=== PATIENT | male | born 1945 | race Caucasian/White ===

== ENCOUNTER 2016-09-24 15:04 | Inpatient (IN) ==
[2016-09-24] MEDS ORDERED: Ondansetron 4 MG/2 ML VIAL IVP ONE (15:31)
[2016-09-24] MEDS ORDERED: *HR* Morphine 2 MG/ML SYRINGE IVP ONE (15:31)
--- NOTE | 2016-09-24 15:36 | Emergency Department Note ---
Disposition Clinical Impression: Pancreatitis Qualifiers: Chronicity: acute Pancreatitis type: unspecified pancreatitis type Acute pancreatitis complication: unspecified Qualified Code(s): K85.90 - Acute pancreatitis without necrosis or infection, unspecified Cholelithiasis Qualifiers: Cholelithiasis location: gallbladder Cholecystitis presence: without cholecystitis Biliary obstruction: without biliary obstruction Qualified Code(s) : K80.20 - Calculus of gallbladder without cholecystitis without obstruction Abdominal pain Qualifiers: Abdominal location: right upper quadrant Qualified Code(s): R10.11 - Right upper quadrant pain Disposition: Admitted As Inpatient Condition: Good Time of Disposition: 15:42 Abdominal Pain HPI - General Chief Complaint: ED Abdominal Pain Stated Complaint: Rt Side abd pain Time Seen by Provider: 09/24/16 15:17 Source: patient, family (), EMS Mode of arrival: EMS Limitations: no limitations Nursing Notes Reviewed: Yes Vital Signs Reviewed: Yes - History of Present Illness HPI Narrative: 71-year-old male history of hypertension, CAD s/p CABG, hyperlipidemia and non- insulin-dependent diabetes mellitus presents to the ED via EMS from the CT for abdominal pain. Patient has been experiencing all constant abdominal pain mostly in the epigastric and right upper quadrant. Ongoing for past 2 days. Denies any nausea vomiting or diarrhea. Denies any bloody stool black tarry stool. Denies any fever, cough, chest pain or shortness of breath. Denies any association with foods. Today he went to the CT urgent care and was evaluated. Review of his medical records from the CT. Labs and images performed. This lipase was greater than 3000. Bilirubin 1.1. Mild elevation of his liver function tests. CT of the abdomen and pelvis show Gabrielle with Nia and stranding around the pancreas suggestive of pancreatitis. He has not eaten anything since 8 AM this morning. Patient presents afebrile with stable vital signs. A copy of the CT was attached and sent down to radiology for upload. Patient will be admitted for pancreatitis. Zofran and morphine for symptoms at this time. Patient is in agreement with this plan. He denies any recent alcohol use. I suspect his pancreatitis is likely due to his gallstone. Pain Scale: 6 - Related Data Home Medications Medication Instructions Recorded Confirmed Gabapentin [Neurontin] 600 mg PO TID 02/11/15 09/24/16 Mv,Minerals/FA/Lycopene/Ginkgo 1 each PO DAILY 02/11/15 09/24/16 [One Daily For Men 50+ Adv Tab] glyBURIDE [GlyBURIDE] 7.5 mg PO BID 02/11/15 09/24/16 metFORMIN [Glucophage] 1,000 mg PO BID 02/11/15 09/24/16 traMADol [Ultram] 100 mg PO QID 02/11/15 09/24/16 Acetaminophen [Tylenol] 500 mg PO Q6HR PRN 09/24/16 09/24/16 Atorvastatin Calcium [Lipitor] 80 mg PO HS 09/24/16 09/24/16 DiphenhydraMINE [Benadryl] 25 mg PO HS 09/24/16 09/24/16 Ketotifen Fumarate [Zaditor] 1 drop BOTH EYES BID 09/24/16 09/24/16 Lisinopril [Zestril] 5 mg PO DAILY 09/24/16 09/24/16 Metoprolol Succinate 25 mg PO DAILY 09/24/16 09/24/16 [place]-3 Fatty Acids [Fish Oil 1,000 mg PO DAILY 09/24/16 09/24/16 Concentrate] Sennosides/Docusate Sodium [Senna 2 each PO BID PRN 09/24/16 09/24/16 Plus] hydroCHLOROthiazide 25 mg PO DAILY 09/24/16 09/24/16 [Hydrochlorothiazide] Previous Rx's Medication Instructions Recorded Aspirin Enteric Coated [Aspirin EC] 81 mg PO DAILY #30 tablet. 02/25/15 Clopidogrel Bisulfate [Plavix] 75 mg PO DAILY #30 tablet 02/25/15 Allergies Allergy/AdvReac Type Severity Reaction Status Date / Time No Known Allergies Allergy Verified 09/24/16 16:22 All systems ED: reviewed and negative except as stated. Review of Systems: As Per HPI Constitutional: Denies: fever, chills Cardiovascular: Denies: chest pain, dyspnea on exertion Respiratory: Denies: cough, dyspnea Gastrointestinal: Reports: abdominal pain. Denies: nausea, vomiting, diarrhea Genitourinary: Denies: urgency, dysuria Musculoskeletal: Denies: back pain, neck pain Integumentary: Denies: rash, abrasion, lesions Neurological: Denies: headache Abdominal Pain PMH - Past Medical History Medical history: Reports: diabetes, hyperlipidemia, hypertension Male Surgical History: Reports: orthopedic, other Psychiatric history: Reports: PTSD - Social History Smoking status: Former smoker Alcohol use: Reports: none Drug use: Reports: none Physical Exam - General Limitations: no limitations General appearance: alert, in no apparent distress - Head Head exam: atraumatic, normocephalic, normal inspection - Eye Eye exam: Present: normal appearance, PERRL, EOMI. Absent: scleral icterus - ENT ENT exam: normal exam, normal oropharynx, mucous membranes moist - Neck Neck exam: Present: normal inspection, full ROM - Chest Chest inspection: Present: normal inspection, symmetric chest wall rise, other ( Midline scar consistent with CABG) - Respiratory Respiratory exam: Present: normal lung sounds bilaterally. Absent: respiratory distress, wheezes - Cardiovascular Cardiovascular exam: Present: regular rate, normal rhythm, normal heart sounds - Abdominal Exam Abdominal exam: Present: soft, tenderness, normal bowel sounds, Sim's sign, scar (epigastric from CABG). Absent: Non-Tender, distention, guarding, rebound , rigidity, Rovsing's sign, tenderness at McBurney's Point Abdominal tenderness: Present: RUQ, epigastrium, diffuse, mild - Extremities Exam Extremities exam: Present: normal inspection, full ROM, normal capillary refill. Absent: tenderness, pedal edema, calf tenderness - Neurological Exam Neurological exam: Present: alert, oriented X3 - Skin Skin exam: Present: warm, dry, intact, normal color Course - Reevaluation(s) Reevaluation #1: Review of his the CT medical records. Shows lab findings consistent with pancreatitis. Patient will be started on IV fluids and medications to control symptoms. He will be admitted for pancreatitis as well as gallstones. Patient is in agreement with this plan. A copy of the CT has been uploaded by the radiology department. - Consultations Consultation #1: Spoke with on-call hospitalist gemma Oliver to admit for abdominal pain, pancreatitis, cholelithiasis. No further orders at this time Time: 15:35 Vital Signs Temperature 98.6 F 09/24/16 15:09 Pulse Rate 70 09/24/16 15:09 Respiratory Rate 18 09/24/16 15:09 Blood Pressure 138/76 09/24/16 15:09 O2 Sat by Pulse Oximetry 99 09/24/16 15:09 Temperature 98.5 F 09/24/16 20:01 Pulse Rate 62 09/24/16 20:01 Respiratory Rate 14 09/24/16 20:01 Blood Pressure 133/69 09/24/16 20:01 O2 Sat by Pulse Oximetry 98 09/24/16 20:01 Oxygen Delivery Oxygen Delivery Room Air Abdominal Pain - Medical Records Medical records reviewed: Yes I reviewed the patient's medical records. - Lab Data Lab results reviewed: Yes I reviewed the patient's lab results. Lab Results 09/24/16 Range/Units 16:37 POC Glucose 87 (58-89) - Radiology Data Radiology results reviewed: Yes I reviewed the patient's radiology results. Attestation Statement - Attestation Attestation: I, Ziyad Wright, examined this patient and my medical decision-making was reviewed with the LIGHTER/PA/Advanced Practice Nurse/Resident Physician. I agree with the documented findings, disposition and treatment plan as described except to the extent set forth below. 71-year-old male presents with concerns of right sided and epigastric abdominal pain. Abdominal pain has been present for the past 2 days. + Nausea without vomiting. Denies chest pain, shortness of breath, palpitations. Laboratory evaluation and CT of the abdomen show likely pancreatitis. Patient will be admitted to the hospital for further care and evaluation of pancreatitis, with treatment with IV fluids.
[2016-09-24] MEDS ORDERED: Ondansetron 4 MG/2 ML VIAL IVP PRN (17:34)
[2016-09-24] MEDS ORDERED: Naloxone 0.4 MG/ML INJ IVP PRN (17:37)
[2016-09-24] MEDS ORDERED: Dextrose Gel 15 GM PO PRN ×2 (17:44)
[2016-09-24] MEDS ORDERED: *HR* Dextrose 50 % in Water (Syg) 50 ML SYRINGE IVP PRN (17:44)
[2016-09-24] MEDS ORDERED: D5% in Water 1,000 ML IVC PRN (17:44)
[2016-09-24] MEDS ORDERED: 0.9 % Sodium Chloride 1,000 ML IVC SCH (17:45)
--- NOTE | 2016-09-24 17:51 | Internal Med History&Physical ---
Date of Encounter: 09/24/16 Time of Encounter: 17:00 Assessment and Plan (1) Acute gallstone pancreatitis Current visit: Yes Status: Acute Will start Zosyn, IVF, Zofran PRN, Morphine PRN. Clear liquid diet. Will obtain gallbladder ultrasound in the a.m. Consult Surgery for possible future cholecystectomy. Consult to Dr. Cohn ordered. Given EF of only 40-45%, will need to discontinue IVF in the a.m. to avoid risk of acute CHF. (2) Ischemic cardiomyopathy Current visit: No Status: Acute Continue Aspirin, Plavix, BB per home dose (3) DM (diabetes mellitus), type 2 Current visit: No Status: Chronic holding PO agents. SSI coverage q6 hours for now while on clear liquid diet. Qualifiers: Diabetes mellitus complication status: with unspecified complications Diabetes mellitus equipment operator intermodal yard insulin use: without equipment operator intermodal yard use Qualified Code( s): E11.8 - Type 2 diabetes mellitus with unspecified complications Internal Medicine - H&P: HPI Chief complaint: abdominal pain Admitted From: Home Plans for Post Hospital Care: Home History of present illness: Mr. Ko is a 71 year old male with past medical history CAD status post three-vessel CABG, hypertension, diabetes type 2, hyperlipidemia who presents to [facility] with abdominal pain. Pain started 2 days ago and is diffuse. Was not accompanied accompanied by vomiting or nausea. Patient denies any diarrhea and has been having normal bowel movements. Patient went to the [facility], and was found to have hyperlipidemia with a lipase level greater than 3000, amylase level 980. Total bilirubin level I.1. CT abdomen and pelvis without IV contrast reveals cholelithiasis with questionable stranding surrounding the pancreatic head suggestive of mild pancreatitis. Urinalysis was unremarkable. Patient denies any history of EtOH use or abuse, and denies history of prior pancreatitis. Patient's abdominal pain is improving with pain control. Past Med Surg Social Fam HX - Past Medical History Medical history: diabetes, hyperlipidemia, hypertension Psychiatric history: PTSD - Past Surgical History Surgical History: coronary bypass (CABG) - Social History Smoking Status: Former smoker Smokeless Tobacco Status: No Alcohol use: none Drug use: none - Family History Father Living Status: Hx Family Cardiac Disorders: Yes Hx Family Cancer: Yes Mother Living Status: Hx Family Cardiac Disorders: Yes (Hypertension) Hx Family Endocrine Disorder: Yes (Diabetes) Internal Medicine - H&P: Meds Gabapentin [Neurontin] 600 mg PO TID 02/11/15 [History] Mv,Minerals/FA/Lycopene/Ginkgo [One Daily For Men 50+ Adv Tab] 1 each PO DAILY 02/11/15 [History] glyBURIDE [GlyBURIDE] 7.5 mg PO BID 02/11/15 [History] metFORMIN [Glucophage] 1,000 mg PO BID 02/11/15 [History] traMADol [Ultram] 100 mg PO QID 02/11/15 [History] Aspirin Enteric Coated [Aspirin EC] 81 mg PO DAILY #30 tablet. 02/25/15 [Rx] Clopidogrel Bisulfate [Plavix] 75 mg PO DAILY #30 tablet 02/25/15 [Rx] Acetaminophen [Tylenol] 500 mg PO Q6HR PRN 09/24/16 [History] Atorvastatin Calcium [Lipitor] 80 mg PO HS 09/24/16 [History] DiphenhydraMINE [Benadryl] 25 mg PO HS 09/24/16 [History] Ketotifen Fumarate [Zaditor] 1 drop BOTH EYES BID 09/24/16 [History] Lisinopril [Zestril] 5 mg PO DAILY 09/24/16 [History] Metoprolol Succinate 25 mg PO DAILY 09/24/16 [History] [place]-3 Fatty Acids [Fish Oil Concentrate] 1,000 mg PO DAILY 09/24/16 [History] Sennosides/Docusate Sodium [Senna Plus] 2 each PO BID PRN 09/24/16 [History] hydroCHLOROthiazide [Hydrochlorothiazide] 25 mg PO DAILY 09/24/16 [History] 3 Allergy/AdvReac Type Severity Reaction Status Date / Time No Known Allergies Allergy Verified 09/24/16 16:22 All Systems PM: A 10-system review of systems was performed and is negative for pertinent findings except as documented above in the HPI. - Constitutional Constitutional: no excessive sweating, no fever(s) - Cardiovascular Cardiovascular ROS IM: no chest pain - Respiratory Respiratory: no dyspnea - Gastrointestinal Gastrointestinal: as per HPI, no diarrhea, no hematochezia, no melena, no nausea - Genitourinary Genitourinary ROS male: no dysuria - Constitutional Vitals: Temp Pulse Resp BP Pulse Ox 97.8 F 63 12 129/77 98 08/17/17 16:19 09/24/16 16:19 09/24/16 16:19 09/24/16 16:19 09/24/16 16:19 General appearance: Present: A&O X 3, pleasant, no acute distress, answers questions appropriately - Respiratory Respiratory exam: Present: CTAB - Cardiovascular Cardiovascular exam: Present: RRR, +S1, +S2 - GI/Abdominal GI/Abdominal exam: Present: normal bowel sounds, soft, no peritoneal signs. Absent: distended, firm, guarding, hepatomegaly, rebound, splenomegaly Additional comments: mild diffuse tenderness noted - Extremities Exam Extremities exam: Absent: pedal edema, tenderness - Psychiatric Psychiatric exam: Present: flat affect
[2016-09-24] MEDS: Insulin LISPRO 300 UNITS/3 ML VIAL SQ SCH (18:05)
[2016-09-24] MEDS: Famotidine 20 MG/2 ML VIAL IVP SCH (18:39)
[2016-09-24] MEDS: *HR* Morphine 2 MG/ML SYRINGE IVP PRN (18:40)
[2016-09-24] MEDS: 0.9 % Sodium Chloride 1,000 ML IVC SCH (18:40)
[2016-09-24] MEDS: Gabapentin 300 MG CAPSULE PO SCH (21:14)
[2016-09-24] MEDS: ZADITOR OP SCH (21:17)
[2016-09-25] MEDS: Insulin LISPRO 300 UNITS/3 ML VIAL SQ SCH ×5 (00:24→23:47)
[2016-09-25] MEDS: Piperacillin/Tazobactam 3.375 GM in D5% in Water (Mini-Bag+) 100 ML IVPB SCH ×2 (00:35→07:40)
[2016-09-25] MEDS: 0.9 % Sodium Chloride 1,000 ML IVC SCH (04:23)
[2016-09-25] MEDS: Famotidine 20 MG/2 ML VIAL IVP SCH ×2 (06:13→18:45)
[2016-09-25] MEDS ORDERED: *HR* Enoxaparin 40 MG/0.4 ML SYRINGE SQ SCH (07:00)
[2016-09-25 07:04] LABS: Alanine Aminotransferase 39 Units/L (0-55); Albumin 3.3 g/dL (3.5-5.0); Albumin/Globulin Ratio 1.2 (1.1-2.2); Alkaline Phosphatase 73 Units/L (38-126); Aspartate Amino Transferase 33 Units/L (5-34); BUN/Creatinine Ratio 15 (6-26); Bilirubin,Total 1.6 mg/dL (0.2-1.2); Blood Urea Nitrogen 12 mg/dL (8-26); Carbon Dioxide 27 mEq/L (19-29); Chloride 107 mEq/L (98-109); Chol/HDL Ratio 3.9 (0-4.9); Cholesterol 108 mg/dL (< 200); Globulin 2.7 g/dL (2.4-3.5); Glucose 93 mg/dL (70-99); HDL Cholesterol 28 mg/dL (40-59); LDL Cholesterol,Calculated 56 mg/dL (0-99); Osmolality,Calculated 289 (280-300); Potassium 3.9 mEq/L (3.5-4.5); Sodium 140 mEq/L (136-145); Triglycerides 122 mg/dL (< 150); eGFR For African Americans > 60 (> 60); eGFR For Non-African Americans > 60 (> 60)
[2016-09-25 07:05] LABS: Basophils % 0.5 %; Eosinophils # 0.2 K/mcL (0.0-0.6); Hemoglobin 12.2 g/dL (12.9-16.9); Immature Granulocytes % 0.5 % (0-4); Lymphocytes % 25.2 %; Mean Corpuscular HGB Conc 33.9 g/dL (31.6-35.5); Mean Corpuscular Hemoglobin 31.6 pg (28.0-33.3); Mean Corpuscular Volume 93.3 fL (83.0-100.0); Mean Platelet Volume 11.7 fL (9.4-12.4); Monocytes # 0.9 K/mcL (0.0-1.3); Monocytes % 10.8 %; Neutrophils # 4.9 K/mcL (1.6-8.9); Platelet Count 130 K/mcL (140-400); Red Blood Count 3.86 M/mcL (4.19-5.50)
[2016-09-25] MEDS: Gabapentin 300 MG CAPSULE PO SCH ×3 (07:37→20:10)
[2016-09-25] MEDS: Metoprolol XL (24 HR) Succ 25 MG TAB.ER.24H PO SCH (07:38)
[2016-09-25] MEDS: ZADITOR OP SCH ×2 (07:41→20:19)
[2016-09-25] MEDS ORDERED: Aspirin Enteric Coated 81 MG Tablet PO SCH (09:00)
--- NOTE | 2016-09-25 09:04 | General Surgery Consult Note ---
<AnaYaya - Last Filed: 09/25/16 14:52> Date of Encounter: 09/25/16 Time of Encounter: 06:45 Assessment and Plan (1) Acute gallstone pancreatitis Current Visit: Yes Status: Acute 71 yo male with PMH of CAD status post three-vessel CABG (02/19/15), hypertension, DM type 2, hyperlipidemia presented to [facility] with 2 days of diffuse abdominal pain without accompanying nausea, vomiting, diarrhea, or constipation on 09/24/16 with elevated lipase >[address] shows mild pancreatitis, gallbladder ultrasound confirms cholelithiasis. -Discontinue aspirin, plavix, lovenox. -Currently working on scheduling cholecystectomy in the next 48 hours. Patient can continue NPO tonight. -Continue Flagyl, Ceftriaxone. -Continue supportive and pain care. -Monitor with a.m. labs -Continue PPI for n/v prophylaxis -Ambulate as tolerated. (2) Chronic anticoagulation Current Visit: No Status: Acute History of 3 vessel CAGB in February,. On chronic plavix and aspirin. Hold anticoagulantion for surgery. (3) DM (diabetes mellitus), type 2 Current Visit: No Hold home medication for now. Qualifiers: Diabetes mellitus complication status: with unspecified complications Diabetes mellitus shelter insulin use: without shelter use Qualified Code( s): E11.8 - Type 2 diabetes mellitus with unspecified complications (4) DVT prophylaxis Current Visit: Yes Status: Acute Ambulate as tolerated. SCDs for DVT prophylaxis if needed. (5) Hypercholesteremia Current Visit: No Status: Chronic Continue atorvastatin, home meds. History of Present Illness Reason for consult: other (Acute gallstone pancreatitis, possible cholecystectomy) Requesting physician: Jimmie Lei History of present illness: 71 yo male with PMH of CAD status post three-vessel CABG (02/19/15), hypertension, DM type 2, hyperlipidemia presented to [facility] with 2 days of diffuse abdominal pain without accompanying nausea, vomiting, diarrhea, or constipation on 09/24/16. Patient went to [facility], where his lipase was greater than 3000, amylase 980, total bilirubin 1.1. CT of the abdomen and pelvis without IV contrast reveals cholelithiasis with questionable stranding surrounding the pancreatic head suggestive of mild pancreatitis. UA was unremarkable. Gallbladder ultrasound demonstrates cholelithiasis with mild gallbladder wall thickening without cholecystitis, diffuse hepatic steatosis, pancreas was obscured by overlying bowel gas. Zofran and morphine were administered at ED with symptomatic relief. Physical exam was within normal limits without abnormalities. Surgery is consulted for possible cholecystectomy. Patient's last bowel movement was yesterday morning. Past Med Surg Social Fam HX - Past Medical History Medical history: diabetes, hyperlipidemia, hypertension Psychiatric history: PTSD - Past Surgical History Surgical History: coronary bypass (CABG) - Social History Smoking Status: Former smoker Smokeless Tobacco Status: No Alcohol use: none Drug use: none - Family History Father Living Status: Hx Family Cardiac Disorders: Yes Hx Family Cancer: Yes Mother Living Status: Hx Family Cardiac Disorders: Yes (Hypertension) Hx Family Endocrine Disorder: Yes (Diabetes) Medications and Allergies Gabapentin [Neurontin] 600 mg PO TID 02/11/15 [History] Mv,Minerals/FA/Lycopene/Ginkgo [One Daily For Men 50+ Adv Tab] 1 each PO DAILY 02/11/15 [History] glyBURIDE [GlyBURIDE] 7.5 mg PO BID 02/11/15 [History] metFORMIN [Glucophage] 1,000 mg PO BID 02/11/15 [History] traMADol [Ultram] 100 mg PO QID 02/11/15 [History] Aspirin Enteric Coated [Aspirin EC] 81 mg PO DAILY #30 tablet. 02/25/15 [Rx] Clopidogrel Bisulfate [Plavix] 75 mg PO DAILY #30 tablet 02/25/15 [Rx] Acetaminophen [Tylenol] 500 mg PO Q6HR PRN 09/24/16 [History] Atorvastatin Calcium [Lipitor] 80 mg PO HS 09/24/16 [History] DiphenhydraMINE [Benadryl] 25 mg PO HS 09/24/16 [History] Ketotifen Fumarate [Zaditor] 1 drop BOTH EYES BID 09/24/16 [History] Lisinopril [Zestril] 5 mg PO DAILY 09/24/16 [History] Metoprolol Succinate 25 mg PO DAILY 09/24/16 [History] [place]-3 Fatty Acids [Fish Oil Concentrate] 1,000 mg PO DAILY 09/24/16 [History] Sennosides/Docusate Sodium [Senna Plus] 2 each PO BID PRN 09/24/16 [History] hydroCHLOROthiazide [Hydrochlorothiazide] 25 mg PO DAILY 09/24/16 [History] 3 Allergy/AdvReac Type Severity Reaction Status Date / Time No Known Allergies Allergy Verified 09/24/16 16:22 Review of Systems All systems PM: A 10-system review of systems was performed and is negative for pertinent findings except as documented above in the HPI. - Constitutional no chills, no fever(s), no weakness - EENT Nose, mouth and throat: no hoarseness, no sore throat - Cardiovascular no chest pain, no diaphoresis, no dyspnea, no dyspnea on exertion, no irregular heart rhythm, no leg edema, no palpitations, no syncope - Respiratory no cough, no dyspnea, no hemoptysis - Gastrointestinal abdominal pain, no change in bowel habits, no change in stool character, no diarrhea, no excessive flatus, no nausea - Genitourinary no difficulty urinating - Musculoskeletal no numbness - Neurological no syncope, no tingling General Surgery Exam Initial Vital Signs Temp Pulse Resp BP Pulse Ox 98.6 F 70 18 138/76 99 09/24/16 15:09/24/16 15:09/24/16 15:09/24/16 15:09/24/16 15:09 - General physical appearance well developed, well nourished, no distress - Eyes normal ocular movement - ENT no hearing loss, atraumatic, normocephalic, CN 2-12 grossly intact - Neck no masses, no bruits, trachea midline, no lymphadectomy, no venous distension - Respiratory normal expansion, normal respiratory effort, clear to auscultation - Cardiovascular Cardiovascular exam: Present: RRR, no murmurs/rubs/gallops - Abdomen Abdomen general surgery: Present: bowel sounds present, soft, tender. Absent: guarding, rebound, surgical scars, wound Abdominal Tenderness: Present: RUQ Hernia: Present: none - Integumentary Integumentary general surgery: Present: warm and dry, no abnormal pigmentation - Neurologic Present: CN 2-12 grossly intact, normal coordination, normal sensation - Psychiatric Psychiatric general surgery: Present: A&Ox3, speech is normal, memory intact Exam Initial Vital Signs Temp Pulse Resp BP Pulse Ox 98.6 F 70 18 138/76 99 09/24/16 15:09/24/16 15:09/24/16 15:09/24/16 15:09 09/24/16 15:09 Results - Labs 09/25/16 06:18 09/25/16 06:18 Abnormal lab results RBC 3.86 M/mcL (4.19-5.50) L 09/25/16 06:18 Hgb 12.2 g/dL (12.9-16.9) L 09/25/16 06:18 Hct 36.0 % (37.5-50.1) L 09/25/16 06:18 Plt Count 130 K/mcL (140-400) L 09/25/16 06:18 Total Bilirubin 1.6 mg/dL (0.2-1.2) H 09/25/16 06:18 Albumin 3.3 g/dL (3.5-5.0) L 09/25/16 06:18 HDL Cholesterol 28 mg/dL (40-59) L 09/25/16 06:18 Diabetes panel 09/25/16 Range/Units 06:18 Sodium 140 (136-145) mEq/L Potassium 3.9 (3.5-4.5) mEq/L Chloride 107 (98-109) mEq/L Carbon Dioxide 27 (19-29) mEq/L BUN 12 (8-26) mg/dL Creatinine 0.80 (0.72-1.25) mg/dL Glucose 93 (70-99) mg/dL Calcium 9.0 (8.6-10.8) mg/dL AST 33 (5-34) Units/L ALT 39 (0-55) Units/L Alkaline Phosphatase 73 (38-126) Units/L Albumin 3.3 L (3.5-5.0) g/dL Triglycerides 122 (< 150) mg/dL HDL Cholesterol 28 L (40-59) mg/dL Calcium panel 09/25/16 Range/Units 06:18 Calcium 9.0 (8.6-10.8) mg/dL Albumin 3.3 L (3.5-5.0) g/dL Pituitary panel 09/25/16 Range/Units 06:18 Sodium 140 (136-145) mEq/L Potassium 3.9 (3.5-4.5) mEq/L Chloride 107 (98-109) mEq/L Carbon Dioxide 27 (19-29) mEq/L BUN 12 (8-26) mg/dL Creatinine 0.80 (0.72-1.25) mg/dL Glucose 93 (70-99) mg/dL Calcium 9.0 (8.6-10.8) mg/dL Adrenal panel 09/25/16 Range/Units 06:18 Sodium 140 (136-145) mEq/L Potassium 3.9 (3.5-4.5) mEq/L Chloride 107 (98-109) mEq/L Carbon Dioxide 27 (19-29) mEq/L BUN 12 (8-26) mg/dL Creatinine 0.80 (0.72-1.25) mg/dL Glucose 93 (70-99) mg/dL Calcium 9.0 (8.6-10.8) mg/dL Total Bilirubin 1.6 H (0.2-1.2) mg/dL AST 33 (5-34) Units/L ALT 39 (0-55) Units/L Alkaline Phosphatase 73 (38-126) Units/L Albumin 3.3 L (3.5-5.0) g/dL All other labs normal. Consult Discharge Plan - Plan [facility]errals: [facility]Primary Care Provider[facility] - <Yohana Garces - Last Filed: 09/26/16 15:18> Date of Encounter: 09/26/16 Time of Encounter: 10:00 Assessment and Plan (1) DVT prophylaxis Current Visit: Yes Status: Acute (2) Abdominal pain Current Visit: Yes Status: Acute prn pain control Qualifiers: Abdominal location: right upper quadrant Qualified Code(s): R10.11 - Right upper quadrant pain (3) Cholelithiasis Current Visit: Yes Status: Acute gallstones seen on CT scan Qualifiers: Cholelithiasis location: gallbladder Cholecystitis presence: without cholecystitis Biliary obstruction: without biliary obstruction Qualified Code(s): K80.20 - Calculus of gallbladder without cholecystitis without obstruction (4) Acute gallstone pancreatitis Current Visit: Yes Status: Acute (5) Gallstone pancreatitis Current Visit: Yes Status: Acute discussed with patient that his amylase and lipase have returned to normal he has been off his asa and plavix for 2 days now ok clears, npo midnight prn pain control plan OR tomorrow for laparoscopic cholecystectomy with cholangiograms, possible open, risks and benefits discussed and he wishes to proceed, will plan Wednesday am History of Present Illness Consult date: 09/25/16 History of present illness: Patient with midabdominal pain starting several days ago, nausea and emesis. Went to the [place], lipase 3000, amylase 980, gallbladder with stones on CT scan. Transferred to [place] and admitted with gallstone pancreatitis. No diarrhea. Nausea improved since admission, pain improved Past Med Surg Social Fam HX - Past Medical History Source: patient Medical history: coronary artery disease, diabetes, hyperlipidemia, hypertension - Past Surgical History Surgical History: coronary bypass (CABG) Review of Systems All systems PM: reviewed and no additional remarkable complaints except as stated All systems PM: A 10-system review of systems was performed and is negative for pertinent findings except as documented above in the HPI. General Surgery Exam Initial Vital Signs Temp Pulse Resp BP Pulse Ox 98.6 F 70 18 138/76 99 09/24/16 15:09 09/24/16 15:09 09/24/16 15:09/24/16 15:09/24/16 15:09 - General physical appearance well developed, well nourished, no distress, no pain - Eyes PERRL, normal ocular movement - ENT normal mucosa, normocephalic - Neck trachea midline - Respiratory normal expansion, clear to auscultation - Cardiovascular Cardiovascular exam: Present: RRR, no murmurs/rubs/gallops - Abdomen Abdomen general surgery: Present: bowel sounds present, soft, tender. Absent: guarding, rebound Abdominal Tenderness: Present: epigastic - Integumentary Integumentary general surgery: Present: warm and dry, no abnormal pigmentation - Neurologic Present: CN 2-12 grossly intact, normal coordination, normal sensation - Musculoskeletal Present: normal gait, normal posture - Psychiatric Psychiatric general surgery: Present: A&Ox3, speech is normal Exam Initial Vital Signs Temp Pulse Resp BP Pulse Ox 98.6 F 70 18 138/76 99 09/24/16 15:09 09/24/16 15:09 09/24/16 15:09/24/16 15:09/24/16 15:09 Results - Labs 09/26/16 01:10 09/26/16 01:10 Short CBC 09/26/16 Range/Units 01:10 WBC 6.3 (4.3-11.1) K/mcL Hgb 12.4 L (12.9-16.9) g/dL Hct 35.4 L (37.5-50.1) % Plt Count 120 L (140-400) K/mcL BMP 09/26/16 Range/Units 01:10 Sodium 139 (136-145) mEq/L Potassium 3.4 L (3.5-4.5) mEq/L Chloride 109 (98-109) mEq/L Carbon Dioxide 26 (19-29) mEq/L BUN 11 (8-26) mg/dL Creatinine 0.76 (0.72-1.25) mg/dL Glucose 192 H (70-99) mg/dL Calcium 8.7 (8.6-10.8) mg/dL Vital Signs Temp Pulse Resp BP Pulse Ox 09/26/16 15:09 98.3 F 76 18 147/73 98 09/26/16 10:04 98.1 F 73 16 143/68 99 09/26/16 10:00 97.8 F 58 18 141/76 97 09/26/16 06:34 98.3 F 72 16 146/73 99 09/26/16 00:05 98.0 F 62 16 148/74 98 09/25/16 19:50 98.0 F 69 16 137/69 98 Intake and Output 09/25/16 09/26/16 09/26/16 23:59 07:59 15:59 Intake Total 100 / 100 2100 / 2100 500 / 500 Output Total 500 / 500 600 / 600 Balance -400 / -400 1500 / 1500 500 / 500 Intake: IV Fluids 100 / 100 2100 / 2100 500 / 500 D5% And 0.45% Nacl 1000 2000 / 2000 500 / 500 Ml Bag 1,000 ML @ 175 mls /hr IVC .[id number] [facility] Rx#: [id number] Flagyl Premix 500 MG/100 100 / 100 100 / 100 ML 500 mg In 100 ml @ 100 mls/hr IVPB Q8HR [facility] Rx# :[id number] Oral 0 / 0 0 / 0 0 / 0 Output: Urine 500 / 500 600 / 600 Other: # Voids 4 Blood Glucose* 197 201 198
[2016-09-25] MEDS: MetroNIDAZOLE 500 MG/100 ML 500 MG/100 ML BAG IVPB SCH ×3 (09:51→23:46)
--- NOTE | 2016-09-25 10:20 | Internal Med Progress Note ---
Addendum entered and electronically signed by Addison River DO 09/25/16 13: 13: Spoke with GI. They are planning surgery in two days and want anticoagulation held for two days. Will hold ASA, Plavix, and Lovenox. SCDs for DVT prophylaxis. Original Note: <Addison River - Last Filed: 09/25/16 10:18> Date of Encounter: 09/25/16 Time of Encounter: 10:18 - Assessment and plan (1) Acute gallstone pancreatitis Current Visit: Yes Status: Acute Assessment and plan: Lipase at [place] was >3000, Amylase 980 CT abd/pelvis: cholelithiasis with questionable stranding around pancreatic head suggestive of mild pancreatitis Gallbladder U/S: Cholelithiasis with mild gallbladder wall thickening. The findings are equivocal for cholecystitis. If cholecystitis remains of clinical concern, consider further characterization with a nuclear medicine HIDA scan. Pancreas obscured by overlying bowel gas Plan: - Continue IV fluids for now, morphine, zofran, clear liquids - NM HIDA scan - Surgery consulted - appreciate recommendations (2) Ischemic cardiomyopathy Current Visit: No Status: Acute Assessment and plan: History of ischemic cardiomyopathy with LVEF 40-45%. No acute worsening. Currently euvolemic - lungs clear, no LE edema Plan: - Continue IV fluids - monitor closely for fluid overload - Continue ASA, Plavix, and BB (3) DM (diabetes mellitus), type 2 Current Visit: No Status: Chronic Assessment and plan: History of DM2 Glucose this AM 90-100's Plan: - Hold PO agents currently - Sliding scale insulin Qualifiers: Diabetes mellitus complication status: with unspecified complications Diabetes mellitus terminal supervisor insulin use: without residential use Qualified Code( s): E11.8 - Type 2 diabetes mellitus with unspecified complications (4) DVT prophylaxis Current Visit: No Status: Acute Assessment and plan: Lovenox - Subjective Interval history: Patient seen and examined. He reports some mid to right sided abdominal pain, much improved with his pain medication. Denies other complaints at this time. Tolerating liquids. Denies chest pain, dyspnea, cough, N/V/D, hematochezia, melena, dysuria, or leg pain/swelling. - Constitutional Vitals: Temp Pulse Resp BP Pulse Ox 98.2 F 63 16 125/67 95 09/25/16 07:17 09/25/16 07:17 09/25/16 07:17 09/25/16 07:17 09/25/16 07:52 General appearance: Present: A&O X 3, pleasant, no acute distress, answers questions appropriately - Head Head exam: Present: atraumatic, normocephalic - ENT ENT exam: Present: mucous membranes moist - Respiratory Respiratory exam: Present: CTAB. Absent: rales, rhonchi, wheezes - Cardiovascular Cardiovascular exam: Present: RRR, +S1, +S2. Absent: diastolic murmur, systolic murmur - GI/Abdominal GI/Abdominal exam: Present: normal bowel sounds, soft. Absent: distended, rigid , tenderness - Extremities Exam Extremities exam: Present: warm, radial pulses palpable and symmetrical. Absent : pedal edema, tenderness - Neurological Exam Neurological exam: Present: alert, CN II-XII intact, oriented X3, no focal deficits Internal Medicine: Result - Labs CBC & Chem 7: 09/25/16 06:18 09/25/16 06:18 Labs: Short CBC 09/25/16 Range/Units 06:18 WBC 8.1 (4.3-11.1) K/mcL Hgb 12.2 L (12.9-16.9) g/dL Hct 36.0 L (37.5-50.1) % Plt Count 130 L (140-400) K/mcL Neutrophils # 4.9 (1.6-8.9) K/mcL BMP 09/25/16 06:18 Sodium 140 Potassium 3.9 Chloride 107 Carbon Dioxide 27 BUN 12 Creatinine 0.80 Glucose 93 Calcium 9.0 Liver Function 09/25/16 Range/Units 06:18 Total Bilirubin 1.6 H (0.2-1.2) mg/dL AST 33 (5-34) Units/L ALT 39 (0-55) Units/L Alkaline Phosphatase 73 (38-126) Units/L Albumin 3.3 L (3.5-5.0) g/dL Consult Discharge Plan - Plan [facility]errals: [facility] [Primary Care Provider] - <Jimmie Lei H - Last Filed: 09/25/16 13:56> Date of Encounter: 09/25/16 - Constitutional Vitals: Temp Pulse Resp BP Pulse Ox 98.2 F 65 16 149/78 99 09/25/16 10:55 09/25/16 10:55 09/25/16 10:55 09/25/16 10:55 09/25/16 10:55 Internal Medicine: Result - Labs CBC & Chem 7: 09/25/16 06:18 09/25/16 06:18 Labs: Short CBC 09/25/16 Range/Units 06:18 WBC 8.1 (4.3-11.1) K/mcL Hgb 12.2 L (12.9-16.9) g/dL Hct 36.0 L (37.5-50.1) % Plt Count 130 L (140-400) K/mcL Neutrophils # 4.9 (1.6-8.9) K/mcL BMP 09/25/16 06:18 Sodium 140 Potassium 3.9 Chloride 107 Carbon Dioxide 27 BUN 12 Creatinine 0.80 Glucose 93 Calcium 9.0 Liver Function 09/25/16 Range/Units 06:18 Total Bilirubin 1.6 H (0.2-1.2) mg/dL AST 33 (5-34) Units/L ALT 39 (0-55) Units/L Alkaline Phosphatase 73 (38-126) Units/L Albumin 3.3 L (3.5-5.0) g/dL - Attending Attestation Possible acute cholecystitis Acute gallstone pancreatitis Keep NPO, HIDA scan ordered, switched to Rocephin and Flagyl IV Surgery consulted, continue IV fluids I examined this patient and my medical decision-making was reviewed with the Resident Physician. I agree with the documented findings, disposition and treatment plan as described except to the extent set forth below.
[2016-09-25 13:17] LABS: Amylase 267 Units/L (25-125); Lipase 113 Units/L (8-78)
[2016-09-25] MEDS: traMADol 50 MG TABLET PO PRN (16:46)
[2016-09-25] MEDS: D5% in 0.45% NACL 1,000 ML IVC SCH (18:45)
[2016-09-25] MEDS: *HR* Morphine 2 MG/ML SYRINGE IVP PRN (20:10)
[2016-09-26] MEDS: D5% in 0.45% NACL 1,000 ML IVC SCH ×2 (00:41→06:32)
[2016-09-26 01:32] LABS: Hematocrit 35.4 % (37.5-50.1); Hemoglobin 12.4 g/dL (12.9-16.9); Mean Corpuscular Hemoglobin 31.9 pg (28.0-33.3); Mean Platelet Volume 11.6 fL (9.4-12.4); Platelet Count 120 K/mcL (140-400); Red Blood Count 3.89 M/mcL (4.19-5.50); Red Cell Distribution Width 11.9 % (11.5-14.5)
[2016-09-26 01:50] LABS: Amylase 79 Units/L (25-125); BUN/Creatinine Ratio 14 (6-26); Blood Urea Nitrogen 11 mg/dL (8-26); Calcium 8.7 mg/dL (8.6-10.8); Carbon Dioxide 26 mEq/L (19-29); Chloride 109 mEq/L (98-109); Glucose 192 mg/dL (70-99); Lipase 49 Units/L (8-78); Osmolality,Calculated 293 (280-300); Potassium 3.4 mEq/L (3.5-4.5); Sodium 139 mEq/L (136-145); eGFR For African Americans > 60 (> 60); eGFR For Non-African Americans > 60 (> 60)
[2016-09-26] MEDS: Insulin LISPRO 300 UNITS/3 ML VIAL SQ SCH ×4 (05:46→23:45)
[2016-09-26] MEDS: Famotidine 20 MG/2 ML VIAL IVP SCH ×2 (05:47→17:23)
[2016-09-26] MEDS: traMADol 50 MG TABLET PO PRN ×3 (09:07→21:44)
[2016-09-26] MEDS: MetroNIDAZOLE 500 MG/100 ML 500 MG/100 ML BAG IVPB SCH (09:08)
[2016-09-26] MEDS: Metoprolol XL (24 HR) Succ 25 MG TAB.ER.24H PO SCH (09:08)
[2016-09-26] MEDS: Gabapentin 300 MG CAPSULE PO SCH ×3 (09:08→19:56)
[2016-09-26] MEDS: ZADITOR OP SCH ×2 (09:09→19:52)
--- NOTE | 2016-09-26 09:53 | Internal Med Progress Note ---
Date of Encounter: 09/26/16 Time of Encounter: 09:50 - Assessment and plan (1) Acute gallstone pancreatitis Current Visit: Yes Status: Acute Assessment and plan: Lipase at [place] was >3000, Amylase 980 CT abd/pelvis: cholelithiasis with questionable stranding around pancreatic head suggestive of mild pancreatitis Gallbladder U/S: Cholelithiasis with mild gallbladder wall thickening. The findings are equivocal for cholecystitis. HIDA scan without evidence of cholecystitis Discontinue Rocephin and Flagyl Subjective fluids to normal saline with 10 meq of potassium Nothing by mouth for possible surgical procedure/cholecystectomy Surgery consulted (2) Hypertension Current Visit: No Status: Chronic Assessment and plan: May continue lisinopril, start hydralazine IV as needed Qualifiers: Hypertension type: essential hypertension Qualified Code(s): I10 - Essential (primary) hypertension (3) Hypercholesteremia Current Visit: No Status: Chronic (4) Coronary artery disease Current Visit: No Status: Chronic Assessment and plan: History of ischemic cardiomyopathy with LVEF 40-45%. No acute worsening. Hold aspirin and Plavix for surgical procedure Continue metoprolol Qualifiers: Coronary Disease-Associated Artery/Lesion type: [place] artery [place] vs. transplanted heart: [place] heart Associated angina: without angina Qualified Code(s): I25.10 - Atherosclerotic heart disease of [place] coronary artery without angina pectoris (5) DM (diabetes mellitus), type 2 Current Visit: No Status: Chronic Assessment and plan: History of DM2 - Hold PO agents currently - Sliding scale insulin Qualifiers: Diabetes mellitus complication status: with unspecified complications Diabetes mellitus penitentiary insulin use: without penitentiary use Qualified Code( s): E11.8 - Type 2 diabetes mellitus with unspecified complications (6) Cholelithiasis Current Visit: Yes Status: Acute Qualifiers: Cholelithiasis location: gallbladder Cholecystitis presence: without cholecystitis Biliary obstruction: without biliary obstruction Qualified Code(s): K80.20 - Calculus of gallbladder without cholecystitis without obstruction (7) Hypokalemia Current Visit: Yes Status: Acute Assessment and plan: Add potassium to IV fluids - Subjective Interval history: Complains of epigastric pain/tenderness to out of 10 in intensity, denies any nausea or vomiting, no dysuria, no diarrhea, chest pain or shortness of breath. No fevers - Constitutional Vitals: Temp Pulse Resp BP Pulse Ox 98.3 F 72 16 146/73 99 09/26/16 06:34 09/26/16 06:34 09/26/16 06:34 09/26/16 06:34 09/26/16 06:34 General appearance: Present: A&O X 3, pleasant, no acute distress, answers questions appropriately - Head Head exam: Present: atraumatic, normocephalic - Eye Eye exam: Present: PERRL, conjuntiva pink, sclera anicteric Pupils: Present: PERRL - Neck Neck exam general surgery: Present: supple, trachea midline. Absent: lymphadenopathy - Respiratory Respiratory exam: Present: CTAB. Absent: accessory muscle use, rales, rhonchi, wheezes - Cardiovascular Cardiovascular exam: Present: RRR, +S1, +S2. Absent: diastolic murmur, gallop, rubs, systolic murmur - GI/Abdominal GI/Abdominal exam: Present: normal bowel sounds, soft, no peritoneal signs. Absent: distended, tenderness Additional comments: Mild epigastric tenderness - Extremities Exam Extremities exam: Present: warm, radial pulses palpable and symmetrical. Absent : calf tenderness, cyanotic, pedal edema - Neurological Exam Neurological exam: Present: CN II-XII intact, oriented X3, no focal deficits. Absent: pronater drift, facial droop, speech deficit - Skin Skin exam: Present: dry, intact Internal Medicine: Result - Labs CBC & Chem 7: 09/26/16 01:10 09/26/16 01:10 Labs: Short CBC 09/26/16 Range/Units 01:10 WBC 6.3 (4.3-11.1) K/mcL Hgb 12.4 L (12.9-16.9) g/dL Hct 35.4 L (37.5-50.1) % Plt Count 120 L (140-400) K/mcL BMP 09/25/16 09/26/16 06:18 01:10 Sodium 140 139 Potassium 3.9 3.4 L Chloride 107 109 Carbon Dioxide 27 26 BUN 12 11 Creatinine 0.80 0.76 Glucose 93 192 H Calcium 9.0 8.7 Liver Function 09/25/16 Range/Units 06:18 Total Bilirubin 1.6 H (0.2-1.2) mg/dL AST 33 (5-34) Units/L ALT 39 (0-55) Units/L Alkaline Phosphatase 73 (38-126) Units/L Albumin 3.3 L (3.5-5.0) g/dL - Impressions Impressions Bile Acid Absorption NM 09/25/16 09:17 IMPRESSION: No convincing scintigraphic evidence of acute cholecystitis. D/ / Omer Rosas MD / Omer Rosas MD Interpreting Provider: Omer Rosas MD - VTE Documentation of Mechanical Device: Intermittent pneumatic compression device Consult Discharge Plan - Plan Referrals: [facility] [Primary Care Provider] -
--- NOTE | 2016-09-26 15:22 | General Surgery Progress Note ---
<PerezYaya - Last Filed: 09/26/16 15:23> Date of Encounter: 09/26/16 Time of Encounter: 09:20 - Assessment and Plan (1) Acute gallstone pancreatitis Current Visit: Yes Status: Acute 71 yo male with PMH of CAD status post three-vessel CABG (02/19/15), hypertension, DM type 2, hyperlipidemia presented to [facility] with 2 days of diffuse abdominal pain without accompanying nausea, vomiting, diarrhea, or constipation on 09/24/16 with elevated lipase >[address] shows mild pancreatitis, gallbladder ultrasound confirms cholelithiasis. -Patient is scheduled for lap. walter tomorrow morning. NPO after midnight. -Continue Flagyl, Ceftriaxone. -Continue supportive and pain care. -Monitor with a.m. labs -Continue PPI for n/v prophylaxis -Ambulate as tolerated. (2) Chronic anticoagulation Current Visit: No Status: Acute History of 3 vessel CAGB in February,. On chronic plavix and aspirin. Hold anticoagulantion for surgery. (3) DM (diabetes mellitus), type 2 Current Visit: No Hold home medication for now. Qualifiers: Diabetes mellitus complication status: with unspecified complications Diabetes mellitus intermediate insulin use: without intermediate use Qualified Code( s): E11.8 - Type 2 diabetes mellitus with unspecified complications (4) DVT prophylaxis Current Visit: Yes Status: Acute Ambulate as tolerated. SCDs for DVT prophylaxis if needed. (5) Hypercholesteremia Current Visit: No Status: Chronic Continue atorvastatin, home meds. Subjective Patient reports: no new complaints, feels better, voiding w/o difficulty, afebrile Objective Vital Signs - Last 8 Hours Temp Pulse Resp BP Pulse Ox 09/26/16 15:09 98.3 F 76 18 147/73 98 09/26/16 10:04 98.1 F 73 16 143/68 99 09/26/16 10:00 97.8 F 58 18 141/76 97 Intake and Output 09/25/16 09/26/16 09/26/16 23:59 07:59 15:59 Intake Total 100 / 100 2100 / 2100 500 / 500 Output Total 500 / 500 600 / 600 Balance -400 / -400 1500 / 1500 500 / 500 Intake: IV Fluids 100 / 100 2100 / 2100 500 / 500 D5% And 0.45% Nacl 1000 2000 / 2000 500 / 500 Ml Bag 1,000 ML @ 175 mls /hr IVC .Q5H43M COLE Rx#: [id number] Flagyl Premix 500 MG/100 100 / 100 100 / 100 ML 500 mg In 100 ml @ 100 mls/hr IVPB Q8HR COLE Rx# :[id number] Oral 0 / 0 0 / 0 0 / 0 Output: Urine 500 / 500 600 / 600 Other: # Voids 4 Blood Glucose* 197 201 198 - General physical appearance well developed, well nourished, no distress - Eyes normal ocular movement - ENT atraumatic, normocephalic, CN 2-12 grossly intact - Neck Neck exam: trachea midline - Respiratory normal expansion, clear to auscultation - Cardiovascular Cardiovascular exam: Present: RRR, no murmurs/rubs/gallops - Abdomen Abdomen: Present: bowel sounds present, soft, tender Abdominal Tenderness: RUQ Hernia: none - Neurologic normal coordination, normal sensation - Psychiatric oriented to time, oriented to person, speech is normal, memory intact - Labs 09/26/16 01:10 09/26/16 01:10 Diabetes panel 09/26/16 Range/Units 01:10 Sodium 139 (136-145) mEq/L Potassium 3.4 L (3.5-4.5) mEq/L Chloride 109 (98-109) mEq/L Carbon Dioxide 26 (19-29) mEq/L BUN 11 (8-26) mg/dL Creatinine 0.76 (0.72-1.25) mg/dL Glucose 192 H (70-99) mg/dL Calcium 8.7 (8.6-10.8) mg/dL Calcium panel 09/26/16 Range/Units 01:10 Calcium 8.7 (8.6-10.8) mg/dL Pituitary panel 09/26/16 Range/Units 01:10 Sodium 139 (136-145) mEq/L Potassium 3.4 L (3.5-4.5) mEq/L Chloride 109 (98-109) mEq/L Carbon Dioxide 26 (19-29) mEq/L BUN 11 (8-26) mg/dL Creatinine 0.76 (0.72-1.25) mg/dL Glucose 192 H (70-99) mg/dL Calcium 8.7 (8.6-10.8) mg/dL Adrenal panel 09/26/16 Range/Units 01:10 Sodium 139 (136-145) mEq/L Potassium 3.4 L (3.5-4.5) mEq/L Chloride 109 (98-109) mEq/L Carbon Dioxide 26 (19-29) mEq/L BUN 11 (8-26) mg/dL Creatinine 0.76 (0.72-1.25) mg/dL Glucose 192 H (70-99) mg/dL Calcium 8.7 (8.6-10.8) mg/dL - VTE Documentation of Mechanical Device: Intermittent pneumatic compression device Consult Discharge Plan - Plan [facility] Care Provider[facility] - <Yohana Garces - Last Filed: 09/26/16 15:42> Date of Encounter: 09/26/16 - Assessment and Plan (1) DVT prophylaxis Current Visit: Yes Status: Acute (2) Abdominal pain Current Visit: Yes Status: Acute Qualifiers: Abdominal location: right upper quadrant Qualified Code(s): R10.11 - Right upper quadrant pain (3) Cholelithiasis Current Visit: Yes Status: Acute Qualifiers: Cholelithiasis location: gallbladder Cholecystitis presence: without cholecystitis Biliary obstruction: without biliary obstruction Qualified Code(s): K80.20 - Calculus of gallbladder without cholecystitis without obstruction (4) Acute gallstone pancreatitis Current Visit: Yes Status: Acute clears today npo midnight prn pain control plan cholecystetomy tomorrow (5) Gallstone pancreatitis Current Visit: Yes Status: Acute Subjective Patient reports: no new complaints, feels better, still having pain, pain is less, tolerating liquids well Objective Vital Signs - Last 8 Hours Temp Pulse Resp BP Pulse Ox 09/26/16 15:09 98.3 F 76 18 147/73 98 09/26/16 10:04 98.1 F 73 16 143/68 99 09/26/16 10:00 97.8 F 58 18 141/76 97 Intake and Output 09/25/16 09/26/16 09/26/16 23:59 07:59 15:59 Intake Total 100 / 100 2100 / 2100 500 / 500 Output Total 500 / 500 600 / 600 Balance -400 / -400 1500 / 1500 500 / 500 Intake: IV Fluids 100 / 100 2100 / 2100 500 / 500 D5% And 0.45% Nacl 1000 2000 / 2000 500 / 500 Ml Bag 1,000 ML @ 175 mls /hr IVC .Q5H43M COLE Rx#: [id number] Flagyl Premix 500 MG/100 100 / 100 100 / 100 ML 500 mg In 100 ml @ 100 mls/hr IVPB Q8HR COLE Rx# :[id number] Oral 0 / 0 0 / 0 0 / 0 Output: Urine 500 / 500 600 / 600 Other: # Voids 4 Blood Glucose* 197 201 198 - Abdomen Abdomen: Present: bowel sounds present, soft, tender. Absent: guarding, rebound Abdominal Tenderness: epigastic - Labs 09/26/16 01:10 09/26/16 01:10 Diabetes panel 09/26/16 Range/Units 01:10 Sodium 139 (136-145) mEq/L Potassium 3.4 L (3.5-4.5) mEq/L Chloride 109 (98-109) mEq/L Carbon Dioxide 26 (19-29) mEq/L BUN 11 (8-26) mg/dL Creatinine 0.76 (0.72-1.25) mg/dL Glucose 192 H (70-99) mg/dL Calcium 8.7 (8.6-10.8) mg/dL Calcium panel 09/26/16 Range/Units 01:10 Calcium 8.7 (8.6-10.8) mg/dL Pituitary panel 09/26/16 Range/Units 01:10 Sodium 139 (136-145) mEq/L Potassium 3.4 L (3.5-4.5) mEq/L Chloride 109 (98-109) mEq/L Carbon Dioxide 26 (19-29) mEq/L BUN 11 (8-26) mg/dL Creatinine 0.76 (0.72-1.25) mg/dL Glucose 192 H (70-99) mg/dL Calcium 8.7 (8.6-10.8) mg/dL Adrenal panel 09/26/16 Range/Units 01:10 Sodium 139 (136-145) mEq/L Potassium 3.4 L (3.5-4.5) mEq/L Chloride 109 (98-109) mEq/L Carbon Dioxide 26 (19-29) mEq/L BUN 11 (8-26) mg/dL Creatinine 0.76 (0.72-1.25) mg/dL Glucose 192 H (70-99) mg/dL Calcium 8.7 (8.6-10.8) mg/dL - Attending Attestation I examined this patient and my medical decision-making was reviewed with the Resident Physician. I agree with the documented findings, disposition and treatment plan as described except to the extent set forth below.
[2016-09-27] MEDS: traMADol 50 MG TABLET PO PRN (03:49)
[2016-09-27 04:59] LABS: Hematocrit 32.4 % (37.5-50.1); Hemoglobin 11.2 g/dL (12.9-16.9); Mean Corpuscular HGB Conc 34.6 g/dL (31.6-35.5); Mean Corpuscular Hemoglobin 31.9 pg (28.0-33.3); Mean Corpuscular Volume 92.3 fL (83.0-100.0); Mean Platelet Volume 12.1 fL (9.4-12.4); Platelet Count 111 K/mcL (140-400); Red Blood Count 3.51 M/mcL (4.19-5.50)
[2016-09-27 05:15] LABS: BUN/Creatinine Ratio 12 (6-26); Blood Urea Nitrogen 9 mg/dL (8-26); Carbon Dioxide 22 mEq/L (19-29); Chloride 115 mEq/L (98-109); Glucose 101 mg/dL (70-99); Osmolality,Calculated 291 (280-300); Potassium 3.9 mEq/L (3.5-4.5); Sodium 141 mEq/L (136-145); eGFR For African Americans > 60 (> 60); eGFR For Non-African Americans > 60 (> 60)
[2016-09-27] MEDS: *HR* Morphine 2 MG/ML SYRINGE IVP PRN (05:15)
[2016-09-27] MEDS: Famotidine 20 MG/2 ML VIAL IVP SCH ×2 (05:15→17:20)
[2016-09-27] MEDS: Insulin LISPRO 300 UNITS/3 ML VIAL SQ SCH ×4 (05:52→23:37)
[2016-09-27] MEDS: Metoprolol XL (24 HR) Succ 25 MG TAB.ER.24H PO SCH (06:55)
[2016-09-27] MEDS: Gabapentin 300 MG CAPSULE PO SCH ×3 (07:00→20:35)
[2016-09-27] MEDS: ZADITOR OP SCH (07:00)
--- NOTE | 2016-09-27 07:55 | Anesthesia Evaluation PreOp ---
Date of Encounter: 09/27/16 Time of Encounter: 09:14 - Past History Planned Operation: Lap cholecystectomy Cardiac History: [place] (nstemi ), CHF (EF as low as 30% after NSTEMI; improved to 40% per recent TTE), HTN, Hyperlipidemia, Cardiac Surgery (CABG 02-19) Pulmonary History: Former smoker CLAIM AGENT History: Denies Any Significant HX Other Medical History: Diabetes Type II Anesthesia History: No Prior Anesthetic Complications, Past Anesthesia (CABG) Alcohol Use: none Drug use: none Medications and Allergies Gabapentin [Neurontin] 600 mg PO TID 02/11/15 [History] Mv,Minerals/FA/Lycopene/Ginkgo [One Daily For Men 50+ Adv Tab] 1 each PO DAILY 02/11/15 [History] glyBURIDE [GlyBURIDE] 7.5 mg PO BID 02/11/15 [History] metFORMIN [Glucophage] 1,000 mg PO BID 02/11/15 [History] traMADol [Ultram] 100 mg PO QID 02/11/15 [History] Aspirin Enteric Coated [Aspirin EC] 81 mg PO DAILY #30 tablet. 02/25/15 [Rx] Clopidogrel Bisulfate [Plavix] 75 mg PO DAILY #30 tablet 02/25/15 [Rx] Acetaminophen [Tylenol] 500 mg PO Q6HR PRN 09/24/16 [History] Atorvastatin Calcium [Lipitor] 80 mg PO HS 09/24/16 [History] DiphenhydraMINE [Benadryl] 25 mg PO HS 09/24/16 [History] Ketotifen Fumarate [Zaditor] 1 drop BOTH EYES BID 09/24/16 [History] Lisinopril [Zestril] 5 mg PO DAILY 09/24/16 [History] Metoprolol Succinate 25 mg PO DAILY 09/24/16 [History] Nelson-3 Fatty Acids [Fish Oil Concentrate] 1,000 mg PO DAILY 09/24/16 [History] Sennosides/Docusate Sodium [Senna Plus] 2 each PO BID PRN 09/24/16 [History] hydroCHLOROthiazide [Hydrochlorothiazide] 25 mg PO DAILY 09/24/16 [History] 3 Allergy/AdvReac Type Severity Reaction Status Date / Time No Known Allergies Allergy Verified 09/24/16 16:22 - Meds/Allergy Pre-op Review Medications Reviewed: Yes Allergies Reviewed: Yes Beta Blockers on Current Med List: Yes If Beta Blockers taken, Date/Time (Last Dose taken): 09-27-16 metoprolol 6:55 Anesthesia Results - Labs 09/27/16 03:45 09/27/16 03:45 - Imaging EKG: report reviewed, image reviewed (SINUS RHYTHM BORDERLINE LEFT AXIS DEVIATION MODERATE INTRAVENTRICULAR CONDUCTION DELAY) Additional studies: -2016 TTE: Impressions: LVEF 45-50%. Low normal/mildly reduced LV function. Normal LV chamber size and wall thickness. Compared to prior reports, LV function has improved. Anesthesia Exam Last Vital Signs Temp 98.2 F 09/27/16 06:29 Pulse 52 09/27/16 06:29 Resp 18 09/27/16 06:29 BP 145/74 09/27/16 06:29 Pulse Ox 95 09/27/16 06:29 Weight: 82 kg - HEENT Pupil (Motor): Pupils equal, EOMI Mallampati: II Teeth: Missing, Poor dentition Oral Opening: Greater than 3 - CLAIM AGENT LOC: Oriented CLAIM AGENT Motor: Normal RUE, Normal LUE, Normal RLE, Normal LLE, Normal Face - Cardiac Rhythm: Regular Murmur: None - Pulmonary Breath Sounds: bilateral Clear Respiratory Effort: Symmetrical Anesthesia Assess/Plan ASA Score: 3 Modified [place] Scale for Level of Consciousness: Cooperative, oriented, and tranquil Anesthetic Plan: General Monitoring Plan: Standard Monitors Recovery Plan: PACU
--- NOTE | 2016-09-27 08:14 | Internal Med Progress Note ---
<Addison River R - Last Filed: 09/27/16 08:11> Date of Encounter: 09/27/16 Time of Encounter: 08:12 - Assessment and plan (1) Acute gallstone pancreatitis Current Visit: Yes Status: Acute Assessment and plan: Lipase at LA was >3000, Amylase 980 CT abd/pelvis: cholelithiasis with questionable stranding around pancreatic head suggestive of mild pancreatitis Gallbladder U/S: Cholelithiasis with mild gallbladder wall thickening. The findings are equivocal for cholecystitis. HIDA scan without evidence of cholecystitis Subjective fluids to normal saline with 10 meq of potassium Nothing by mouth for lap walter today Surgery consulted (2) Hypertension Current Visit: No Status: Chronic Assessment and plan: May continue lisinopril, start hydralazine IV as needed Qualifiers: Hypertension type: essential hypertension Qualified Code(s): I10 - Essential (primary) hypertension (3) Cholelithiasis Current Visit: Yes Status: Acute Qualifiers: Cholelithiasis location: gallbladder Cholecystitis presence: without cholecystitis Biliary obstruction: without biliary obstruction Qualified Code(s): K80.20 - Calculus of gallbladder without cholecystitis without obstruction (4) DM (diabetes mellitus), type 2 Current Visit: No Status: Chronic Assessment and plan: History of DM2 - Hold PO agents currently - Sliding scale insulin Qualifiers: Diabetes mellitus complication status: with unspecified complications Diabetes mellitus terminal clerk insulin use: without long-term use Qualified Code( s): E11.8 - Type 2 diabetes mellitus with unspecified complications (5) Coronary artery disease Current Visit: No Status: Chronic Assessment and plan: History of ischemic cardiomyopathy with LVEF 40-45%. No acute worsening. Hold aspirin and Plavix for surgical procedure Continue metoprolol Qualifiers: Coronary Disease-Associated Artery/Lesion type: [place] artery [place] vs. transplanted heart: [place] heart Associated angina: without angina Qualified Code(s): I25.10 - Atherosclerotic heart disease of [place] coronary artery without angina pectoris (6) Hypercholesteremia Current Visit: No Status: Chronic (7) Hypokalemia Current Visit: Yes Status: Acute Assessment and plan: Add potassium to IV fluids (8) DVT prophylaxis Current Visit: Yes Status: Acute Assessment and plan: SCDs - Subjective Interval history: Patient seen and examined. His abdominal pain is much improved. Denies other complaints at this time. NPO in preparation for surgery today. Denies chest pain , dyspnea, cough, N/V/D, hematochezia, melena, dysuria, or leg pain/swelling. - Constitutional Vitals: Temp Pulse Resp BP Pulse Ox 98.2 F 52 18 145/74 95 09/27/16 06:29 09/27/16 06:29 09/27/16 06:29 09/27/16 06:29 09/27/16 06:29 General appearance: Present: A&O X 3, pleasant, no acute distress, answers questions appropriately - Head Head exam: Present: atraumatic, normocephalic - Eye Eye exam: Present: conjuntiva pink, sclera anicteric - Respiratory Respiratory exam: Present: CTAB. Absent: rales, rhonchi, wheezes - Cardiovascular Cardiovascular exam: Present: RRR, +S1, +S2. Absent: diastolic murmur, systolic murmur - GI/Abdominal GI/Abdominal exam: Present: normal bowel sounds, soft. Absent: distended, rigid , tenderness - Extremities Exam Extremities exam: Present: warm, radial pulses palpable and symmetrical. Absent : pedal edema, tenderness - Neurological Exam Neurological exam: Present: alert, CN II-XII intact, oriented X3, no focal deficits Internal Medicine: Result - Labs CBC & Chem 7: 09/27/16 03:45 09/27/16 03:45 Labs: Short CBC 09/27/16 Range/Units 03:45 WBC 5.8 (4.3-11.1) K/mcL Hgb 11.2 L (12.9-16.9) g/dL Hct 32.4 L (37.5-50.1) % Plt Count 111 L (140-400) K/mcL BMP 09/27/16 03:45 Sodium 141 Potassium 3.9 Chloride 115 H Carbon Dioxide 22 BUN 9 Creatinine 0.74 Glucose 101 H Calcium 8.0 L - VTE Documentation of Mechanical Device: Intermittent pneumatic compression device Consult Discharge Plan - Plan [facility]errals: [facility] [Primary Care Provider] - <Jimmie Lei H - Last Filed: 09/27/16 10:37> Date of Encounter: 09/27/16 - Assessment and plan (1) Acute gallstone pancreatitis Current Visit: Yes Status: Acute (2) Hypertension Current Visit: No Status: Chronic Qualifiers: Hypertension type: essential hypertension Qualified Code(s): I10 - Essential (primary) hypertension (3) Hypercholesteremia Current Visit: No Status: Chronic (4) Coronary artery disease Current Visit: No Status: Chronic Qualifiers: Coronary Disease-Associated Artery/Lesion type: [place] artery [place] vs. transplanted heart: [place] heart Associated angina: without angina Qualified Code(s): I25.10 - Atherosclerotic heart disease of [place] coronary artery without angina pectoris (5) DM (diabetes mellitus), type 2 Current Visit: No Status: Chronic Qualifiers: Diabetes mellitus complication status: with unspecified complications Diabetes mellitus long-term insulin use: without terminal clerk use Qualified Code( s): E11.8 - Type 2 diabetes mellitus with unspecified complications (6) Cholelithiasis Current Visit: Yes Status: Acute Qualifiers: Cholelithiasis location: gallbladder Cholecystitis presence: without cholecystitis Biliary obstruction: without biliary obstruction Qualified Code(s): K80.20 - Calculus of gallbladder without cholecystitis without obstruction (7) Hypokalemia Current Visit: Yes Status: Acute - Constitutional Vitals: Temp Pulse Resp BP Pulse Ox 98.2 F 52 18 145/74 95 09/27/16 06:29 09/27/16 06:29 09/27/16 06:29 09/27/16 06:29 09/27/16 06:29 Internal Medicine: Result - Labs CBC & Chem 7: 09/27/16 03:45 09/27/16 03:45 Labs: Short CBC 09/27/16 Range/Units 03:45 WBC 5.8 (4.3-11.1) K/mcL Hgb 11.2 L (12.9-16.9) g/dL Hct 32.4 L (37.5-50.1) % Plt Count 111 L (140-400) K/mcL BMP 09/27/16 03:45 Sodium 141 Potassium 3.9 Chloride 115 H Carbon Dioxide 22 BUN 9 Creatinine 0.74 Glucose 101 H Calcium 8.0 L - Attending Attestation CYY today I examined this patient and my medical decision-making was reviewed with the Resident Physician. I agree with the documented findings, disposition and treatment plan as described except to the extent set forth below.
[2016-09-27] MEDS ORDERED: *HR* FentaNYL (PF) 100 MCG/2 ML VIAL ONE (09:00)
[2016-09-27] MEDS ORDERED: *HR* Rocuronium Bromide 50 MG/5 ML VIAL ONE (09:01)
[2016-09-27] MEDS ORDERED: *HR* Succinylcholine 200 MG/10 ML VIAL IVP ONE (09:01)
[2016-09-27] MEDS ORDERED: Ondansetron 4 MG/2 ML VIAL ONE (09:01)
[2016-09-27] MEDS ORDERED: *HR* Propofol 200 MG/20 ML VIAL IVP ONE ×2 (09:01→10:33)
[2016-09-27] MEDS ORDERED: Dexamethasone 4 MG/ML VIAL ONE (09:01)
[2016-09-27] MEDS ORDERED: Lidocaine -MPF 2% 2 ML VIAL ONE (09:01)
[2016-09-27] MEDS ORDERED: *HR* Phenylephrine 10 MG/ML VIAL ONE (09:01)
[2016-09-27] MEDS ORDERED: CefOXitin 2,000 MG VIAL IVPB ONE (10:01)
[2016-09-27] MEDS ORDERED: cefOXitin 2,000 MG in D5% in Water (Mini-Bag+) 100 ML IVPB ONE (10:29)
[2016-09-27] MEDS ORDERED: Ringers Solution, Lactated 1,000 ML IVC SCH (10:30)
[2016-09-27] MEDS ORDERED: Esmolol 100 MG/10 ML VIAL IVP ONE (10:36)
[2016-09-27] MEDS ORDERED: Neostigmine Methylsulfate 3 MG/3 ML SYRINGE ONE (10:38)
[2016-09-27] MEDS ORDERED: Ketorolac 30 MG/ML VIAL ONE (10:42)
--- NOTE | 2016-09-27 11:17 | Operative Note ---
Date of procedure: 09/27/16 Pre-op diagnosis: gallstone pancreatitis Post-op diagnosis: same (and acute cholecystitis) Procedure: Laparoscopic cholecystectomy with intraop cholangiograms Complications: none immediate Anesthesia: GETA, local Local Anesthetics: 0.5% Sensorcaine HCL SubQ (cc) (30) Surgeon: Yohana Garces Terrazzo Worker Apprentice: Nicolle Connor Estimated blood loss (cc): 20 Specimen: gallbladder Condition: stable Disposition: PACU Procedure in Detail: The patient was brought into the operating suite and placed supine on the operating table. Sign-in was performed and everyone was in agreement. Anesthesia was induced and patient was endotracheally intubated by anesthesia without incident and they also placed an OG tube. The abdomen was prepped and draped in the usual sterile fashion. A timeout was performed again everyone was in agreement. A supraumbilical incision was made through the skin into the subcutaneous tissue with an 11 blade. Towel clamps were placed on either side of the umbilicus for retraction. S retractors were used to dissect down to the anterior abdominal wall linea alba fascia. A Veress needle was placed through this incision and a water drop test confirmed placement and the abdomen was insufflated. The abdomen was entered with a 5 mm 0 degree laparoscope on a 5 mm xcel trocar. The area and entry was visualized was no bleeding and no apparent bowel injury. A 5 mm subxiphoid port was placed under direct visualization after first incising the skin with an 11 blade. A right upper quadrant subcostal position midclavicular line 5 mm port was placed under direct visualization after first incising skin with 11 blade. The laparoscope was placed in this and we exchanged the supraumbilical port for a 12 mm port under direct visualization. The last 5 mm port was placed in the right upper quadrant subcostal position anterior axillary line after first incising the skin with an 11 blade. The patient was placed in steep reverse Trendelenburg left side down position. The dome of the gallbladder was grasped and retracted cephalad. Omental adhesions to the body and infundibulum of the gallbladder were taken down bluntly with the [place] and with heated [place]. The infundibulum was grasped and retracted laterally. Using the [place] we dissected out the cystic duct and cystic artery. Two 5 mm Hemoclip were placed proximally on the cystic artery and one distally and it was transected with curved scissors. A 5 mm plastic hemoclip was placed proximally on the cystic duct and the cystic duct was partially transected with curved scissors. Using the Bowman clamp, the cholangiocatheter was introduced into the partially transected cystic duct with the [place]. A metal 5 mm hemoclip was placed across the proximal cystic duct and the cholangiocatheter. The catheter flushed easily. The patient was placed in Trendelenberg position. Cholangiograms were obtained showing contrast up into the left and right intrahepatic ducts down through the common hepatic and common bile duct into the duodenum. 12 ccof Isovue was used for the cholangiograms patient was returned to reverse Trendelenburg left side down position. The clip on the cholangiocatheter and proximal cystic duct was removed as well as the cholangiocatheter. Three 5 mm hemoclips were placed proximally on the cystic duct and it was transected with curved scissors. The gallbladder was removed off the cystic plate with the Bovie. Any bleeding points were stopped with the Bovie. A large piece of surgicel was placed at the gallbladder fossa due to oozing, which had stopped by the end of the case.The gallbladder was placed in a laparoscopic Endo Catch bag and removed via the supraumbilical incision site. The inferior edge of the liver was bluntly retracted cephalad and the cystic plate was copiously irrigated with sterile saline. There was no bleeding or apparent bile leak from the cystic plate and the clips on the cystic artery and duct were intact. All irrigation was suctioned free from the abdomen. All insufflation was suctioned free from the abdomen and the ports removed. The abdominal wall at the supraumbilical incision site was closed with a 0 Vicryl [id number] stitch. 30 mL of 0.5% Marcaine was injected subcutaneously at the 4 port sites. The skin at the three 5 mm port sites were closed with 4-0 Monocryl interrupted subcuticular stitches. The skin at the supraumbilical incision site was closed with a 4-0 Monocryl running subcuticular stitch. Steri-Strips were applied to all wounds. The patient was awoken in the operating suite having tolerated the procedure well and were taken to PACU in stable condition after all lap and ensuring counts were correct at the end of the case.
--- NOTE | 2016-09-27 11:23 | Discharge Summary ---
Date of Encounter: 09/27/16 Time of Encounter: 11:20 - Discharge Diagnosis (1) DVT prophylaxis Priority: Secondary Status: Acute (2) Abdominal pain Priority: Secondary Status: Acute Qualifiers: Abdominal location: right upper quadrant Qualified Code(s): R10.11 - Right upper quadrant pain (3) Cholelithiasis Priority: Secondary Status: Acute Qualifiers: Cholelithiasis location: gallbladder Cholecystitis presence: without cholecystitis Biliary obstruction: without biliary obstruction Qualified Code(s): K80.20 - Calculus of gallbladder without cholecystitis without obstruction (4) Acute gallstone pancreatitis Priority: Primary Status: Acute - Discharge Medications Prescriptions: OxyCODONE/APAP 5/325 [Percocet 5/325 MG] 1 each PO Q4HR PRN #30 tablet PRN Reason: Pain Docusate [Colace] 100 mg PO BID #30 capsule Home Medications: Gabapentin [Neurontin] 600 mg PO TID 02/11/15 [History] Mv,Minerals/FA/Lycopene/Ginkgo [One Daily For Men 50+ Adv Tab] 1 each PO DAILY 02/11/15 [History] glyBURIDE [GlyBURIDE] 7.5 mg PO BID 02/11/15 [History] metFORMIN [Glucophage] 1,000 mg PO BID 02/11/15 [History] traMADol [Ultram] 100 mg PO QID 02/11/15 [History] Aspirin Enteric Coated [Aspirin EC] 81 mg PO DAILY #30 tablet. 02/25/15 [Rx] Clopidogrel Bisulfate [Plavix] 75 mg PO DAILY #30 tablet 02/25/15 [Rx] Acetaminophen [Tylenol] 500 mg PO Q6HR PRN 09/24/16 [History] Atorvastatin Calcium [Lipitor] 80 mg PO HS 09/24/16 [History] DiphenhydraMINE [Benadryl] 25 mg PO HS 09/24/16 [History] Ketotifen Fumarate [Zaditor] 1 drop BOTH EYES BID 09/24/16 [History] Lisinopril [Zestril] 5 mg PO DAILY 09/24/16 [History] Metoprolol Succinate 25 mg PO DAILY 09/24/16 [History] [place]-3 Fatty Acids [Fish Oil Concentrate] 1,000 mg PO DAILY 09/24/16 [History] Sennosides/Docusate Sodium [Senna Plus] 2 each PO BID PRN 09/24/16 [History] hydroCHLOROthiazide [Hydrochlorothiazide] 25 mg PO DAILY 09/24/16 [History] Docusate [Colace] 100 mg PO BID #30 capsule 09/27/16 [Rx] OxyCODONE/APAP 5/325 [Percocet 5/325 MG] 1 each PO Q4HR PRN #30 tablet 09/27/16 [Rx] Allergies/Adverse Reactions: 3 Allergy/AdvReac Type Severity Reaction Status Date / Time No Known Allergies Allergy Verified 09/24/16 16:22 General Surgery Exam Initial Vital Signs Temp Pulse Resp BP Pulse Ox 98.6 F 70 18 138/76 99 09/24/16 15:09 09/24/16 15:09 09/24/16 15:09 09/24/16 15:09 09/24/16 15:09 - General physical appearance well nourished, no distress, moderate pain - Eyes PERRL, normal ocular movement - ENT normal mucosa, normocephalic - Neck trachea midline - Respiratory normal expansion, clear to auscultation - Cardiovascular Cardiovascular exam: Present: RRR - Abdomen Abdomen general surgery: Present: bowel sounds present, soft, tender ( appropriate post op tenderness) - Incision Incision: Present: clean and dry, intact - Integumentary Integumentary general surgery: Present: warm and dry, no abnormal pigmentation - Neurologic Present: CN 2-12 grossly intact - Musculoskeletal Present: normal gait, normal posture - Psychiatric Psychiatric general surgery: Present: A&Ox3, speech is normal Date of admission: 09/24/16 17:37 [facility] Discharging clinician: Yohana Garces - Patient Status Disposition: Home, Self-Care Condition: Good Overall status at discharge: patient is progressing back to baseline - Discharge Instructions Follow Up With: [facility] Care Provider[facility] - Tess Trinidad UPPER STITCHER [Advanced Practice Nurse] - (in two weeks for post op lap cholecystectomy check) Additional Instructions: No lifting more than 20 pounds for 2 weeks. Okay to take a shower in 24 hours. No tub baths or pools for 1 week. Okay to ride in the car wearing a seatbelt and climb steps. No driving until off narcotics for 24 hours and able to react safely Remove Steri-Strips in 1 week Do not take pain medicine/narcotics on an empty stomach it will likely cause nausea and possibly vomiting. If pain medication is too strong okay to break in half start aspirin and plavix on Wednesday - Diet and Activity Activity: increase activity as tolerated Diet: diabetic diet - Hospital Course Hospital course: Mr. Ko is a 71 year old male who was admitted to the hospital from the [place] with gallstone pancreatitis. After his amylase and lipase returned to normal he had been off his aspirin and Plavix for 2 days he was taken to the OR for an uncomplicated laparoscopic cholecystectomy with intraoperative cholangiograms. Cholangiograms demonstrated no common bile duct stone. Postoperatively patient was started on a full diet and transition to a diabetic diet as tolerated. His pain was initially controlled with IV medication and then transition to by mouth. He was up and ambulate and was having appropriate bowel and bladder function. He was discharged home in stable condition. - Time Spent with Patient Total time spent providing and/or coordinating discharge services: Less than 30 minutes Labs on day of discharge: Labs from last 24 hours 09/27/16 09/27/16 09/26/16 03:45 03:45 18:27 WBC 5.8 RBC 3.51 L Hgb 11.2 L Hct 32.4 L MCV 92.3 MCH 31.9 MCHC 34.6 RDW 12.0 Plt Count 111 L MPV 12.1 Sodium 141 Potassium 3.9 Chloride 115 H Carbon Dioxide 22 BUN 9 Creatinine 0.74 Est GFR ( Amer) > 60 Est GFR (Non-Af Amer) > 60 BUN/Creatinine Ratio 12 Glucose 101 H POC Glucose 217 H Calculated Osmolality 291 Calcium 8.0 L 09/26/16 09/25/16 11:11 10:58 WBC RBC Hgb Hct MCV MCH MCHC RDW Plt Count MPV Sodium Potassium Chloride Carbon Dioxide BUN Creatinine Est GFR ( Amer) Est GFR (Non-Af Amer) BUN/Creatinine Ratio Glucose POC Glucose 198 H 132 H Calculated Osmolality Calcium - Impressions ITS Impressions Bile Acid Absorption NM 09/25/16 09:17 IMPRESSION: No convincing scintigraphic evidence of acute cholecystitis. D/ / Omer Rosas MD / Omer Rosas MD Interpreting Provider: Omer Rosas MD Cholangiogram,Operative 09/27/16 00:00 IMPRESSION: No evidence of choledocholithiasis. D/ / Collins Flynn MD / Collins Flynn MD Interpreting Provider: Collins Flynn MD
[2016-09-27] MEDS: *HR* HYDROmorphone (PF) 1 MG/ML SYRINGE IVP PRN ×8 (11:25→12:21)
[2016-09-27] MEDS ORDERED: *HR* Promethazine 25 MG/ML VIAL IVP PRN (11:27)
[2016-09-27] MEDS ORDERED: *HR* HYDROmorphone (PF) 1 MG/ML SYRINGE ONE (12:12)
[2016-09-27] MEDS: *HR* Labetalol 20 MG/4 ML SYRINGE IVP PRN ×2 (12:21→12:41)
--- NOTE | 2016-09-27 12:59 | Anesthesia Evaluation Post Op ---
Date of Encounter: 09/27/16 Time of Encounter: 12:58 - Vital Signs Vital Signs: Last Vital Signs Temp 98.7 F 09/27/16 12:49 Pulse 81 09/27/16 12:49 Resp 16 09/27/16 12:49 BP 148/90 09/27/16 12:49 Pulse Ox 99 09/27/16 12:49 - Lungs Lungs: Clear Ascult./Percussion - Airway Airway: Non-obstructed - Cardiovascular Regular Rate - Mental Status Mental Status: Alert & Oriented, Answers Appropriately - Pain Pain Scale: 5 - Nausea Vomiting Nausea Vomiting: Not Present - Hydration Hydration: Ice chips - Discharge PostOp Status: Transfer Patient to floor
[2016-09-27] MEDS ORDERED: D5% in Water 1,000 ML IVC PRN (13:01)
[2016-09-27] MEDS ORDERED: Dextrose Gel 15 GM PO PRN ×2 (13:01)
[2016-09-27] MEDS ORDERED: *HR* Morphine 2 MG/ML SYRINGE IVP PRN (13:01)
[2016-09-27] MEDS ORDERED: *HR* Dextrose 50 % in Water (Syg) 50 ML SYRINGE IVP PRN (13:01)
[2016-09-27] MEDS ORDERED: Ondansetron 4 MG/2 ML VIAL IVP PRN (13:01)
[2016-09-27] MEDS ORDERED: Naloxone 0.4 MG/ML INJ IVP PRN (13:01)
[2016-09-27] MEDS: *HR* OxyCODONE/APAP 5/325 TABLET PO PRN (14:47)
[2016-09-27] MEDS: Patient Taking Own Medication 1 EACH OP SCH (20:38)
[2016-09-28 05:36] LABS: Hematocrit 34.8 % (37.5-50.1); Hemoglobin 11.8 g/dL (12.9-16.9); Mean Corpuscular HGB Conc 33.9 g/dL (31.6-35.5); Mean Corpuscular Hemoglobin 31.1 pg (28.0-33.3); Mean Corpuscular Volume 91.8 fL (83.0-100.0); Mean Platelet Volume 11.5 fL (9.4-12.4); Platelet Count 144 K/mcL (140-400); Red Blood Count 3.79 M/mcL (4.19-5.50)
[2016-09-28 05:48] LABS: BUN/Creatinine Ratio 12 (6-26); Blood Urea Nitrogen 10 mg/dL (8-26); Calcium 8.7 mg/dL (8.6-10.8); Carbon Dioxide 24 mEq/L (19-29); Chloride 111 mEq/L (98-109); Glucose 142 mg/dL (70-99); Osmolality,Calculated 293 (280-300); Sodium 141 mEq/L (136-145); eGFR For African Americans > 60 (> 60); eGFR For Non-African Americans > 60 (> 60)
[2016-09-28] MEDS: Insulin LISPRO 300 UNITS/3 ML VIAL SQ SCH (05:50)
[2016-09-28] MEDS: Famotidine 20 MG/2 ML VIAL IVP SCH (05:53)
[2016-09-28 06:39] VITALS: BP 159/71
[2016-09-28] MEDS: *HR* OxyCODONE/APAP 5/325 TABLET PO PRN (07:25)
[2016-09-28] MEDS: Patient Taking Own Medication 1 EACH OP SCH (07:26)
[2016-09-28] MEDS: Gabapentin 300 MG CAPSULE PO SCH (07:26)
--- NOTE | 2016-09-28 08:30 | Internal Med Progress Note ---
<Addison River - Last Filed: 09/28/16 08:28> Date of Encounter: 09/28/16 Time of Encounter: 08:28 - Assessment and plan (1) Acute gallstone pancreatitis Current Visit: Yes Status: Acute Assessment and plan: POD#1 s/p lap walter - doing well, +BM, tolerating oral intake, ambulating well without difficulty CT abd/pelvis: cholelithiasis with questionable stranding around pancreatic head suggestive of mild pancreatitis Gallbladder U/S: Cholelithiasis with mild gallbladder wall thickening. The findings are equivocal for cholecystitis. HIDA scan without evidence of cholecystitis Plan: Discharge today with follow-up as out-patient (2) Hypertension Current Visit: No Status: Chronic Assessment and plan: May continue lisinopril, start hydralazine IV as needed Qualifiers: Hypertension type: essential hypertension Qualified Code(s): I10 - Essential (primary) hypertension (3) Cholelithiasis Current Visit: Yes Status: Acute Qualifiers: Cholelithiasis location: gallbladder Cholecystitis presence: without cholecystitis Biliary obstruction: without biliary obstruction Qualified Code(s): K80.20 - Calculus of gallbladder without cholecystitis without obstruction (4) DM (diabetes mellitus), type 2 Current Visit: No Status: Chronic Assessment and plan: History of DM2 Plan: Hold PO agents currently Sliding scale insulin Restart PO agents at discharge Qualifiers: Diabetes mellitus complication status: with unspecified complications Diabetes mellitus exterminator termite insulin use: without exterminator termite use Qualified Code( s): E11.8 - Type 2 diabetes mellitus with unspecified complications (5) Coronary artery disease Current Visit: No Status: Chronic Assessment and plan: History of ischemic cardiomyopathy with LVEF 40-45%. No acute worsening. Hold aspirin and Plavix for surgical procedure - may restart on Wednesday per surgery Continue metoprolol Qualifiers: Coronary Disease-Associated Artery/Lesion type: [place] artery [place] vs. transplanted heart: [place] heart Associated angina: without angina Qualified Code(s): I25.10 - Atherosclerotic heart disease of [place] coronary artery without angina pectoris (6) Hypercholesteremia Current Visit: No Status: Chronic (7) Hypokalemia Current Visit: Yes Status: Acute Assessment and plan: Add potassium to IV fluids (8) DVT prophylaxis Current Visit: Yes Status: Acute Assessment and plan: SCDs - Subjective Interval history: Patient seen and examined. His abdomen is appropriately tender near incision sites. 2 BM overnight, no trouble urinating. Tolerating oral intake. Bandages are clean and dry. Denies other complaints at this time. Denies chest pain, dyspnea, cough, N/V/D, hematochezia, melena, dysuria, or leg pain/swelling. Ready to go home. - Constitutional Vitals: Temp Pulse Resp BP Pulse Ox 98.1 F 47 18 159/71 97 09/28/16 06:36 09/28/16 06:36 09/28/16 06:36 09/28/16 06:36 09/28/16 06:36 General appearance: Present: A&O X 3, pleasant, no acute distress, answers questions appropriately - Head Head exam: Present: atraumatic, normocephalic - Eye Eye exam: Present: conjuntiva pink, sclera anicteric - Respiratory Respiratory exam: Present: CTAB. Absent: rales, rhonchi, wheezes - Cardiovascular Cardiovascular exam: Present: RRR, +S1, +S2. Absent: diastolic murmur, systolic murmur - GI/Abdominal GI/Abdominal exam: Present: normal bowel sounds, soft, tenderness ( appropriately tender near incision sites - bandages clean and dry). Absent: distended, rigid - Extremities Exam Extremities exam: Present: warm. Absent: pedal edema, tenderness - Neurological Exam Neurological exam: Present: alert, CN II-XII intact, oriented X3, no focal deficits Internal Medicine: Result - Labs CBC & Chem 7: 09/28/16 05:20 09/28/16 05:20 Labs: Short CBC 09/28/16 Range/Units 05:20 WBC 9.4 D (4.3-11.1) K/mcL Hgb 11.8 L (12.9-16.9) g/dL Hct 34.8 L (37.5-50.1) % Plt Count 144 (140-400) K/mcL [facility] 09/28/16 05:20 Sodium 141 Potassium 4.0 Chloride 111 H Carbon Dioxide 24 BUN 10 Creatinine 0.86 Glucose 142 H Calcium 8.7 - Impressions Impressions Cholangiogram,Operative 09/27/16 00:00 IMPRESSION: No evidence of choledocholithiasis. D/ / Collins Flynn MD / Collins Flynn MD Interpreting Provider: Collins Flynn MD - VTE Documentation of Mechanical Device: Intermittent pneumatic compression device Consult Discharge Plan - Plan Additional Instructions: No lifting more than 20 pounds for 2 weeks. Okay to take a shower in 24 hours. No tub baths or pools for 1 week. Okay to ride in the car wearing a seatbelt and climb steps. No driving until off narcotics for 24 hours and able to react safely Remove Steri-Strips in 1 week Do not take pain medicine/narcotics on an empty stomach it will likely cause nausea and possibly vomiting. If pain medication is too strong okay to break in half start aspirin and plavix on Wednesday Referrals: Tess Trinidad DEPOSIT CLERK [Advanced Practice Nurse] - 10/15/16 9:30 am (in two weeks for post op lap cholecystectomy check) [facility] Care Provider[facility] - Prescriptions: OxyCODONE/APAP 5/325 [Percocet 5/325 MG] 1 each PO Q4HR PRN #30 tablet PRN Reason: Pain Docusate [Colace] 100 mg PO BID #30 capsule <Jimmie Lei - Last Filed: 09/28/16 09:47> Date of Encounter: 09/28/16 - Assessment and plan (1) Acute gallstone pancreatitis Current Visit: Yes Status: Acute (2) Hypertension Current Visit: No Status: Chronic Qualifiers: Hypertension type: essential hypertension Qualified Code(s): I10 - Essential (primary) hypertension (3) Hypercholesteremia Current Visit: No Status: Chronic (4) Coronary artery disease Current Visit: No Status: Chronic Qualifiers: Coronary Disease-Associated Artery/Lesion type: [place] artery [place] vs. transplanted heart: [place] heart Associated angina: without angina Qualified Code(s): I25.10 - Atherosclerotic heart disease of [place] coronary artery without angina pectoris (5) DM (diabetes mellitus), type 2 Current Visit: No Status: Chronic Qualifiers: Diabetes mellitus complication status: with unspecified complications Diabetes mellitus exterminator termite insulin use: without intermediate use Qualified Code( s): E11.8 - Type 2 diabetes mellitus with unspecified complications (6) Cholelithiasis Current Visit: Yes Status: Acute Qualifiers: Cholelithiasis location: gallbladder Cholecystitis presence: without cholecystitis Biliary obstruction: without biliary obstruction Qualified Code(s): K80.20 - Calculus of gallbladder without cholecystitis without obstruction (7) Hypokalemia Current Visit: Yes Status: Acute - Constitutional Vitals: Temp Pulse Resp BP Pulse Ox 98.1 F 47 18 159/71 97 09/28/16 06:36 09/28/16 06:36 09/28/16 06:36 09/28/16 06:36 09/28/16 06:36 Internal Medicine: Result - Labs CBC & Chem 7: 09/28/16 05:20 09/28/16 05:20 Labs: Short CBC 09/28/16 Range/Units 05:20 WBC 9.4 D (4.3-11.1) K/mcL Hgb 11.8 L (12.9-16.9) g/dL Hct 34.8 L (37.5-50.1) % Plt Count 144 (140-400) K/mcL BMP 09/28/16 05:20 Sodium 141 Potassium 4.0 Chloride 111 H Carbon Dioxide 24 BUN 10 Creatinine 0.86 Glucose 142 H Calcium 8.7 - Impressions Impressions Cholangiogram,Operative 09/27/16 00:00 IMPRESSION: No evidence of choledocholithiasis. D/ / Collins Flynn MD / Collins Flynn MD Interpreting Provider: Collins Flynn MD - Attending Attestation Acute pancreatitis likely secondary to cholelithiasis status post laparoscopic cholecystectomy Stable to be discharged I examined this patient and my medical decision-making was reviewed with the Resident Physician. I agree with the documented findings, disposition and treatment plan as described except to the extent set forth below.
[2016-09-28] MEDS ORDERED: Metoprolol XL (24 HR) Succ 25 MG TAB.ER.24H PO SCH (09:00)
[2016-09-28] MEDS ORDERED: Patient Taking Own Medication 1 EACH PO SCH (09:00)
== END 2016-09-28 11:54 | disposition home or self-care (01) | DRG 418 ==
LOC: 3NENU 15:04 → EMEROO 15:04 → 3NENU 16:01 → SUATTDRO 17:37
PROVIDERS: ADMIT Family Medicine; ATTEND Internal Medicine